=== PATIENT | female | born 1955 | race Caucasian/White ===

== ENCOUNTER → 2018-12-16 | Outpatient (CLI) | payer MEDICARE, OTHER ==
[~2018-12-16] MED LIST: ASPIR 8181 MG PO; CLONAZEPAM1 MG PO; COQ-10100 MG PO; FISH OIL 1,001000 M2 PO; FLAX OIL1000 MG PO; IBUPROFEN 800800 M1 PO; ICAPS TABLET1 EACH PO; LIPITOR 20 MG T20 M1 PO; NEURONTIN 300300 M1 PO; PROZAC20 MG PO; ROBAXIN 750 MG750 M1 PO; VITAMIN D35000 UNI1 PO; XANAX 0.5 MG0.5 MG PO
== END ==
LOC: M.RAD 10-23 11:29
DX: Z12.31 Encounter for screening mammogram for malignant neoplasm of breast (principal); M85.851 Other specified disorders of bone density and structure, right thigh; M85.852 Other specified disorders of bone density and structure, left thigh; E28.39 Other primary ovarian failure; Z78.0 Asymptomatic menopausal state

== ENCOUNTER → 2020-11-01 | Outpatient (CLI) | payer MEDICARE, OTHER | LOC: M.RAD 11:56 | PROVIDERS: ATTEND Family Medicine | DX: Z12.31 Encounter for screening mammogram for malignant neoplasm of breast (principal) ==